=== PATIENT | male | born 1970 | race Caucasian/White ===

== ENCOUNTER 2022-10-16 10:01 | Outpatient (CLI) | payer BC ==
[~2022-10-16] VITALS: Ht 182.9 cm; Wt 94.3 kg
[2022-10-16] MEDS ORDERED: CETI10TA17 PO (10:38)
[2022-10-16] MEDS ORDERED: DEXT10TA9 PO (10:38)
== END 2022-10-16 10:41 | disposition home or self-care (01) ==
LOC: PREOP 10:01
PROVIDERS: ATTEND Internal Medicine
DX: Z01.818 Encounter for other preprocedural examination (principal)

== ENCOUNTER 2022-10-30 08:26 | Day surgery (SDC) | payer BC ==
--- NOTE | 2022-10-18 04:54 | HISTORY AND PHYSICAL ---
COLONOSCOPY HISTORY AND PHYSICAL DATE OF ADMISSION: 10/30/2022 HISTORY OF PRESENT ILLNESS: The patient is a 52-year-old white male referred for his first screening colonoscopy. He is deemed to be higher than average risk. His mother was diagnosed with colon cancer at the age of 62. He reports no previous history of colonoscopy. He reports that he has had several occult stool studies for blood done in the past that were negative. He denies abdominal pain, melena, bright red blood per rectum, change in bowel habits or abdominal bloating. PAST MEDICAL HISTORY: Significant for attention deficit disorder and Hodgkin's lymphoma diagnosed at the age of 21 with mediastinal disease for which he underwent chemo and radiation therapy with no evidence for recurrence. He reports no significant past surgeries. 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 FAMILY HISTORY: Noted in the HPI. REVIEW OF SYSTEMS: CONSTITUTIONAL: Denies night sweats, chills, fever, change in weight. GASTROINTESTINAL: As noted in the HPI. PULMONARY: Denies cough, wheezing or shortness of breath. CARDIOVASCULAR: Denies chest discomfort, orthopnea, PND, pedal edema or syncope. PHYSICAL EXAMINATION: GENERAL: Reveals a pleasant white male in no acute distress. VITAL SIGNS: Weight 208 pounds, blood pressure 110/60. HEENT: Unremarkable. Mallampati 1 pharyngeal configuration. Good dentition. CHEST: Clear to auscultation. CARDIOVASCULAR: Reveals a regular rate and rhythm without murmur, S3 or S4. ABDOMEN: Soft, supple without mass, organomegaly, or tenderness. EXTREMITIES: Reveal no cyanosis, clubbing or edema. ASSESSMENT AND PLAN: 1. The patient is being set up for his first screening colonoscopy. He deemed to be of higher than average risk. His mother was diagnosed with colon cancer at the age of 62. Prep instructions were given. Questions were answered. I thank you for the referral of this pleasant gentleman. Job ID: [id number] DocumentID: [id number] Dictated Date: 10/15/2022 16:56:05 Hardwood Faller Date: 10/15/2022 17:22:00 Dictated By: KYLE VINCENT MD
[~2022-10-30] VITALS: Ht 183 cm; Wt 94.3 kg
[~2022-10-30 08:26] MED LIST: CETI10TA17 PO; DEXT10TA9 PO
[2022-10-30] MEDS ORDERED: LACTATED RINGERS 1,000 ML IV STA (08:28)
--- NOTE | 2022-10-30 08:32 | Pre-Op Note & Conscious Sedat ---
Pre-Operative Progress Note Date H&P Reviewed: Oct 30, 2022 Time H&P Reviewed: 08:31 Pre-Op Diagnosis: screening Conscious Sedation Pre-Proced ASA Score 2 For ASA 3 and 4: Consider anesthesia and medical clearance. Also, for patients with a history of failed moderate sedation consider anesthesia. Airway Lungs Heart ASA score ASA 1: a normal healthy patient ASA 2: a patient with a mild systemic disease (mid diabetes, controlled hypertension, obesity ASA 3: a patient with a severe systemic disease that limits activity (angina, COPD, prior Myocardial infarction) ASA 4: a patient with an incapacitating disease that is a constant threat to life (CHF, renal failure) ASA 5: a moribund patient not expected to survive 24 hrs. (ruptured aneurysm) ASA 6: a declared brain- patient whose organs are being harvested. For emergent operations, add the letter E after the classification Mallampati Classification Grade 1 Sedation Plan Analgesia, Amnesia, Plan communicated to team members, Discussed options with patient/fam, Discussed risks with patient/fam The patient is an appropriate candidate to undergo the planned procedure, sedation, and anesthesia. The patient immediately re-assessed prior to indication. KYLE VINCENT MD Oct 30, 2022 08:32
[2022-10-30 08:45] VITALS: BP 121/87
[2022-10-30] MEDS ORDERED: MIDAZOLAM 2 MG/2 ML (VERSED) VIAL ONE (09:22)
[2022-10-30] MEDS ORDERED: PROPOFOL INJECTION 50 ML IV ONE (09:23)
[2022-10-30 09:53] VITALS: BP 97/53
--- NOTE | 2022-10-30 09:53 | Progress Note-Post Operative ---
Post-Procedure Note Physician (s)/Administration Manager (s) Physician KYLE VINCENT MD Pre-Procedure Diagnosis Pre-Procedure Diagnosis: screening Post-Procedure Diagnosis Post-operative diagnosis: Prior to undergoing colonoscopy digital rectal evaluation was performed. Anal suture tone was normal and the perianal reflexes intact. Prostate was unremarkable to visual inspection as well as the anal canal and distal rectal vault. The colonoscope was then inserted into the rectum and under direct visualization advanced to the cecum. The cecum was identified by indication of the ileocecal valve and the cecal strap. A careful inspection was made as the colonoscope was withdrawn. Quality the prep was good. Findings: There are no evidence for internal or external hemorrhoids and the rectum was unremarkable. Present in the distal sigmoid colon was a 6 mm sessile hyperplastic appearing polyp was biopsied ablated and submitted for histopathology. Moderate number of small to medium sized sigmoid diverticulum were present with no evidence for diverticulitis. 1 moderate-sized mid a sending colonic diverticulum was present as well. The descending colon splenic flexure transverse colon hepatic flexure ascending colon save for moderate diverticulum and cecum were unremarkable. Assessment: Moderate diverticular disease noted in the sigmoid colon and one moderate sized mid a sending colonic diverticulum were present with evidence of diverticulitis. 1 5 to 6 mm sessile hyperplastic appearing polyp was biopsied and ablated and submitted for us pathology located in the distal sigmoid colon. As long as there are no surprises on histopathology report would advocate consideration of repeat screening colonoscopy in 10 years. Sincerely, Kyle Vincent MD. CC: Dr. Ebony Read. KYLE VINCENT MD Oct 30, 2022 09:53
[2022-10-30 09:58] VITALS: BP 102/59
[2022-10-30 10:02] VITALS: BP 93/54
[2022-10-30 10:37] VITALS: BP 93/54
--- NOTE | 2022-10-30 14:49 | Anesthesia-General Post-Op ---
MAC Patient Condition Mental Status/LOC: Same as Preop Cardiovascular: Satisfactory Nausea/Vomiting: Absent Respiratory: Satisfactory Pain: Controlled Complications: Absent Post Op Complications Complications None Follow Up Care/Instructions Patient Instructions None needed. Anesthesiology Discharge Order Discharge Order Patient was doing well this morning after the procedure with no complaints, stable vital signs, no apparent adverse anesthesia problems. No complications reported per nursing. NAVID NUNO DO Oct 30, 2022 14:49
--- NOTE | 2022-11-02 16:37 | Physician Query-Final Dx ---
JOSELITO OWEN 11/02/22 1637: Clinic Account Progress/Dx Physician Query: Please clarify the manner in which the polyp was removed: Present in the distal sigmoid colon was a 6 mm sessile hyperplastic appearing polyp was biopsied ablated and submitted for histopathology. A. Hot Biopsy Forceps B. Cold Biopsy Date of Service Oct 30, 2022 at 08:26 KYLE VINCENT MD 11/03/22 1922: Clinic Account Progress/Dx DIAGNOSIS: Diagnosis B JOSELITO OWEN Nov 02, 2022 16:37 KYLE VINCENT MD Nov 03, 2022 19:22
== END 2022-10-30 10:43 | disposition home or self-care (01) ==
LOC: ENDO 08:26
PROVIDERS: ATTEND Internal Medicine
DX: Z12.11 Encounter for screening for malignant neoplasm of colon (principal); K63.5 Polyp of colon; K57.30 Diverticulosis of large intestine without perforation or abscess without bleeding; Z80.0 Family history of malignant neoplasm of digestive organs; Z28.310 Unvaccinated for COVID-19